=== PATIENT | male | born 1995 | race Caucasian/White ===

== ENCOUNTER 2018-12-13 08:02 | Emergency (ER) | payer SELFPAY ==
[~2018-12-13] VITALS: Ht 177.8 cm; Wt 110.0 kg
[2018-12-13 08:25] VITALS: BP 134/79
== END 2018-12-13 08:50 | disposition home or self-care (01) ==
LOC: ER 08:26
DX: Z02.89 Encounter for other administrative examinations (principal)
CPT/HCPCS: 99283